=== PATIENT | female | born 1990 ===

== ENCOUNTER 2016-09-23 08:12 | Emergency (ER) | payer MEDICAID ==
[2016-09-23 08:12] VITALS: BMI 35.9
[2016-09-23] MEDS ORDERED: Sodium Chloride 0.9% 1,000 ML IV ONE (08:45)
[2016-09-23] MEDS ORDERED: Sodium Chloride 0.9% 1,000 ML ONE (08:49)
[2016-09-23 08:59] LABS: RBC URINE 3 /hpf (0-3); URINE BILIRUBIN NEGATIVE (NEGATIVE); URINE BLOOD NEGATIVE (NEGATIVE); URINE COLOR Yellow (YELLOW); URINE GLUCOSE (UA) NORMAL (Normal); URINE KETONE TRACE mg/dL (NEGATIVE); URINE LEUKOCYTE ESTERASE 1+ Leu/uL (Negative); URINE PROTEIN NEGATIVE (NEGATIVE); URINE UROBILINOGEN NORMAL mg/dL (0.2-1.0); WBC URINE 5 /hpf (0-5)
[2016-09-23 09:03] LABS: BASO % 0.9 % (0.0-2.0); EOS # 0.1 K/uL (0.0-0.7); EOS % 1.7 % (0.0-4.0); HEMATOCRIT 38.8 % (34.0-47.0); LYMPH % 19.8 % (20.0-40.0); MEAN CORPUSCULAR HEMOGLOBIN 27.7 pg (27.0-31.0); MEAN CORPUSCULAR HGB CONC 32.6 g/dL (33.0-37.0); MEAN PLATELET VOLUME 9.1 fL (7.2-11.7); MONO # 0.8 K/uL (0.0-0.8); MONO % 15.6 % (0.0-10.0); RED CELL DISTRIBUTION WIDTH 13.9 % (11.5-14.5)
[2016-09-23 09:04] VITALS: TEMP 99.3; O2SAT 100
[2016-09-23 09:07] LABS: MEAN CELL VOLUME 85.1 fL (81.0-99.0)
--- NOTE | 2016-09-23 09:14 | C.PDOC ---
History Of Present Illness Patient is a 26 y/o female (6 weeks ), whose PMHx includes gastritis, asthma, diabetes, and HTN, presents to the ED for evaluation of abdominal pain. Patient states she was trying to move her bowels this morning, when she suddenly felt lower abdominal pain. Patient states she had miscarriage 3 years ago and was also 6 weeks at that time. Patient also complains of cough , runny nose, and congestion for the past 2 days. Otherwise, denies any fever, chills, nausea, vomiting, dysuria, hematuria, vaginal bleeding, back pain, shortness of breath, throat pain, or any other associated symptoms at this time. Time Seen by Provider: 09/23/16 08:26 Chief Complaint (Nursing): Abdominal Pain History Per: Patient History/Exam Limitations: no limitations Onset/Duration Of Symptoms: Days (2) Current Symptoms Are (Timing): Still Present Radiation Of Pain To:: None Quality Of Discomfort: "Pain" Associated Symptoms: denies: Fever, Chills, Nausea, Vomiting, Diarrhea, Loss Of Appetite, Back Pain, Chest Pain, Urinary Symptoms Exacerbating Factors: None Alleviating Factors: None Recent travel outside of the [place]: No Additional History Per: Family Abnormal Vaginal Bleeding: No Past Medical History Reviewed: Historical Data, Nursing Documentation, Vital Signs Vital Signs: Last Vital Signs Temp 99.3 F 09/23/16 09:03 Pulse 89 09/23/16 11:33 Resp 18 09/23/16 11:33 BP 129/85 09/23/16 11:33 Pulse Ox 100 09/23/16 11:33 - Medical History PMH: Arthritis, Asthma, Bipolar Disorder, Depression, Diabetes, Gastritis, HTN Denies: Chronic Kidney Disease Surgical History: (x1) - [facility] Procedures INJECT/INFUSE NEC (02/04/15) LOW CERVICAL (01/15/14) Family History: States: CAD (mom) - Social History Hx Tobacco Use: No Hx Alcohol Use: No Hx Substance Use: No - Immunization History Hx Tetanus Toxoid Vaccination: No Hx Influenza Vaccination: No Hx Pneumococcal Vaccination: No Review Of Systems Except As Marked, All Systems Reviewed And Found Negative. Constitutional: Negative for: Fever, Chills ENT: Positive for: Nose Discharge (rhinorrhea), Nose Congestion. Negative for: Throat Pain Respiratory: Positive for: Cough. Negative for: Shortness of Breath, Wheezing Gastrointestinal: Positive for: Abdominal Pain. Negative for: Nausea, Vomiting , Diarrhea Genitourinary: Negative for: Dysuria, Frequency, Hematuria, Vaginal Discharge, Vaginal Bleeding Musculoskeletal: Negative for: Back Pain Physical Exam - Physical Exam Appears: Non-toxic, No Acute Distress, Other (obese) Skin: Normal Color, Warm, Dry Head: Atraumatic, Normacephalic Eye(s): bilateral: Normal Inspection, EOMI Nose: Other (nasal congestion) Neck: Normal ROM, Supple Chest: Symmetrical, No Tenderness Cardiovascular: Rhythm Regular, No Murmur Respiratory: Normal Breath Sounds, No Rales, No Rhonchi, No Wheezing, Other ( coughing) Gastrointestinal/Abdominal: Soft, Tenderness (RLQ), No Guarding, No Rebound Extremity: Normal ROM Neurological/Psych: Oriented x3, Normal Speech, Normal Cognition ED Course And Treatment - Laboratory Results Result Diagrams: 09/23/16 08:58 09/23/16 08:58 O2 Sat by Pulse Oximetry: 100 (on RA) Pulse Ox Interpretation: Normal - CT Scan/US transvaginal ultrasound Other Rad Studies (CT/US): Read By Radiologist, Radiology Report Reviewed CT/US Interpretation: Findings: The uterus measures approximately 8.1 x 5.2 x 6.6 cm. Retroverted. Cervix length measures approximately 3.5 cm. There is a single intrauterine fetus present. 3 mm yolk sac. The gestational sac measures 2.1 cm and is compatible with a gestational age of 6 weeks 4 days. The crown- rump length measures 0.7 cm and is compatible with a gestational age of 6 weeks 4 days. 1.1 x 0.9 cm subchorionic hemorrhage. There is heart motion which measured 119.5 BPM. The right ovary measures 3.8 x 2.8 x 2.8. 1.4 x 1.2 x 1.2 cm probable right corpus luteal cyst. The left ovary measures 2.9 x 1.6 x 2.4. 1.0 x 0.6 x 0.9 cm paraovarian cyst. Blood flow was demonstrated to both ovaries. Impression: Live single intrauterine with estimated gestational age 6 weeks 4 days. heart rate 119.5 bpm. 1.1 x 0.9 cm subchorionic hemorrhage. Advise an anomaly screen at 16-18 weeks gestational age Progress Note: Labs, transvaginal ultrasound ordered and reviewed. Patient was given IV fluids. Disposition Counseled Patient/Family Regarding: Studies Performed, Diagnosis, Need For Followup - Disposition Disposition: HOME/ ROUTINE Disposition Time: 11:00 Condition: IMPROVED Additional Instructions: Follow up with your OBGYN appointment as indicated. Instructions: (ED) - POA Present On Arrival: None - Clinical Impression Clinical Impression: Abdominal pain, - Scribe Statement The provider has reviewed the documentation as recorded by the Pritesh Braun Provider Attestation: All medical record entries made by the Pritesh were at my direction and personally dictated by me. I have reviewed the chart and agree that the record accurately reflects my personal performance of the history, physical exam, medical decision making, and the department course for this patient. I have also personally directed, reviewed, and agree with the discharge instructions and disposition.
[2016-09-23 09:39] LABS: CHLORIDE 101 mmol/L (98-107)
[2016-09-23 09:40] LABS: SODIUM 137 mmol/L (132-148)
[2016-09-23 09:42] LABS: ALB/GLOB RATIO 1.2 (1.0-2.1); ALKALINE PHOSPHATASE 77 U/L (38-126); AST/SGOT 24 U/L (14-36); BILIRUBIN,TOTAL 0.8 mg/dL (0.2-1.3); BLOOD UREA NITROGEN 9 mg/dL (7-17); CARBON DIOXIDE 25 mmol/L (22-30); GFR AFRICAN-AMERICAN > 60; TOTAL PROTEIN 6.9 g/dL (6.3-8.3)
[2016-09-23 09:43] LABS: ALT/SGPT 33 U/L (9-52); CALCIUM 8.7 mg/dl (8.6-10.4); GLUCOSE,RANDOM 87 mg/dL (65-105)
--- NOTE | 2016-09-23 10:37 | US ---
Indication: lower abdominal pain in Comparison: Ob transvaginal ultrasound performed 06/10/13, no recent study available for comparison. Technique: Real-time transabdominal pelvic ultrasound was performed. In addition a transvaginal pelvic ultrasound was necessary to better depict pelvic anatomy Findings: The uterus measures approximately 8.1 x 5.2 x 6.6 cm. Retroverted. Cervix length measures approximately 3.5 cm. There is a single intrauterine fetus present. 3 mm yolk sac. The gestational sac measures 2.1 cm and is compatible with a gestational age of 6 weeks 4 days. The crown-rump length measures 0.7 cm and is compatible with a gestational age of 6 weeks 4 days. 1.1 x 0.9 cm subchorionic hemorrhage. There is heart motion which measured 119.5 BPM. The right ovary measures 3.8 x 2.8 x 2.8. 1.4 x 1.2 x 1.2 cm probable right corpus luteal cyst. The left ovary measures 2.9 x 1.6 x 2.4. 1.0 x 0.6 x 0.9 cm paraovarian cyst. Blood flow was demonstrated to both ovaries. Impression: Live single intrauterine with estimated gestational age 6 weeks 4 days. heart rate 119.5 bpm. 1.1 x 0.9 cm subchorionic hemorrhage. Advise an anomaly screen at 16-18 weeks gestational age
[2016-09-23 11:35] VITALS: BP 129/85; PULSE 89; RESP 18
== END 2016-09-23 11:34 | disposition home or self-care (01) ==
LOC: C.ER 08:12
DX: O26.891 Other specified pregnancy related conditions, first trimester (principal); R10.31 Right lower quadrant pain; Z3A.01 Less than 8 weeks gestation of pregnancy
CPT/HCPCS: 76805; 76817; 80053; 81001; 84702; 84703; 85025; 96360; 99285; J7040

== ENCOUNTER 2018-03-05 22:30 | Emergency (ER) | payer MEDICAID, OTHER ==
[2018-03-05 22:30] VITALS: BMI 36.3
[2018-03-05 22:43] VITALS: PULSE 80
--- NOTE | 2018-03-05 22:54 | C.PDOC ---
History Of Present Illness 28 year old female presents to the ED c/o left anterior chest wall pain for the past 2 hours. Patient states her pain is sharp, worsens with movement and palpation. Patient denies fever chills, nausea, vomit, diarrhea, sweats, lighth eadedness, dizziness, palpitations, injury, fall, trauma. Chief Complaint (Nursing): Chest Pain History Per: Patient History/Exam Limitations: no limitations Onset/Duration Of Symptoms: Hrs (2) Current Symptoms Are (Timing): Still Present Quality: Sharp Exacerbating Factors: Movement Recent travel outside of the [facility]: No Additional History Per: Patient Past Medical History Reviewed: Historical Data, Nursing Documentation, Vital Signs Vital Signs: Last Vital Signs Temp 98.3 F 03/05/18 22:38 Pulse 80 03/05/18 22:38 Resp 14 03/05/18 22:38 BP 111/51 L 03/05/18 22:38 Pulse Ox 98 03/05/18 22:38 - Medical History PMH: Arthritis, Asthma, Bipolar Disorder, Depression, Diabetes, Gastritis, HTN Denies: Chronic Kidney Disease Surgical History: (x 2) - [facility] Procedures INJECT/INFUSE NEC (02/04/15) LOW CERVICAL (01/15/14) Family History: States: CAD (mom) - Social History Hx Tobacco Use: No Hx Alcohol Use: No Hx Substance Use: No - Immunization History Hx Tetanus Toxoid Vaccination: No Hx Influenza Vaccination: No Hx Pneumococcal Vaccination: No Review Of Systems Constitutional: Negative for: Fever, Chills Cardiovascular: Positive for: Chest Pain. Negative for: Palpitations Respiratory: Negative for: Cough, Shortness of Breath Gastrointestinal: Negative for: Nausea, Vomiting Neurological: Negative for: Weakness, Numbness, Headache Physical Exam - Physical Exam Appears: Non-toxic, No Acute Distress Skin: Normal Color, Warm, Dry Head: Atraumatic, Normacephalic Eye(s): bilateral: Normal Inspection Neck: Normal ROM, Supple Chest: Symmetrical, Tenderness (left lateral, parasternal area) Cardiovascular: Rhythm Regular Respiratory: Normal Breath Sounds, No Rales, No Rhonchi, No Wheezing Gastrointestinal/Abdominal: Soft, No Tenderness, No Guarding, No Rebound Extremity: Normal ROM, No Tenderness, No Swelling Neurological/Psych: Oriented x3, Normal Speech, Normal Cognition Gait: Steady ED Course And Treatment - Laboratory Results Result Diagrams: 03/05/18 23:09 03/05/18 23:09 ECG: Interpreted By Me, Viewed By Me ECG Rhythm: Sinus Rhythm ECG Interpretation: Normal, No Acute Changes Interpretation Of ECG: NSR, normal tracings Rate From EC O2 Sat by Pulse Oximetry: 98 (ON RA) Pulse Ox Interpretation: Normal - Radiology CXR: Interpreted by Me, Viewed By Me CXR Interpretation: Yes: No Acute Disease, Other (normal chest film). No: Infiltrates - CT Scan/US CT chest Other Rad Studies (CT/US): Read By Radiologist, Radiology Report Reviewed CT/US Interpretation: CTA OF THE CHEST WITH IV CONTRAST. CLINICAL HISTORY: Chest pain. TECHNIQUE: Axial and reformatted sagittal and coronal images of the chest obtained after bolus IV contrast administration. FINDINGS: Normal enhancement of the enlarged main pulmonary artery and right and left pulmonary arteries. Normal enhancement of the bilateral peripheral pulmonary arteries. There is no demonstrated pulmonary embolism. Normal thoracic aorta and visualized great vessels. There is no demonstrated aortic dissection. Normal heart and pericardium. Normal mediastinum. Normal hilar regions. Normal visualized trachea and bronchi. The lungs are well expanded. Normal pulmonary parenchyma. Normal pleura. Normal chest wall structures. Normal osseous structures. Moderate sliding hiatal hernia. IMPRESSION: No demonstrated pulmonary embolism or arterial dissection. Moderate sliding hiatal hernia. Enlarged main pulmonary artery, probably pulmonary arterial hypertension. . Electronically signed on Mar 06, 2018 3:38:44 AM EDT by: Emily Zavala M.D., Certified by ABR, MSK, Neuroradiology Medical Decision Making Medical Decision Making: Plan: * EKG * Labs * CXR * Toradol 30 mg IVP * UA Disposition Counseled Patient/Family Regarding: Diagnosis - Disposition Referrals: [facility] [Outside] Disposition: HOME/ ROUTINE Disposition Time: 03:40 Condition: STABLE Prescriptions: Naproxen 375 mg PO TIDPC #20 tablet Instructions: Costochondritis Forms: [facility] (Albanian) - POA Present On Arrival: None - Clinical Impression Clinical Impression: Chest wall pain - Scribe Statement The provider has reviewed the documentation as recorded by the Scribe Hank Larson All medical record entries made by the Scribe were at my direction and personally dictated by me. I have reviewed the chart and agree that the record accurately reflects my personal performance of the history, physical exam, medical decision making, and the department course for this patient. I have also personally directed, reviewed, and agree with the discharge instructions and disposition.
[2018-03-05 23:14] LABS: BASO # 0.1 K/uL (0.0-0.2); BASO % 1.5 % (0.0-2.0); EOS # 0.1 K/uL (0.0-0.7); EOS % 1.8 % (0.0-4.0); HEMOGLOBIN 11.6 g/dL (11.0-16.0); LYMPH # 2.2 K/uL (1.0-4.3); LYMPH % 31.2 % (20.0-40.0); MEAN CELL VOLUME 83.6 fL (81.0-99.0); MEAN CORPUSCULAR HEMOGLOBIN 27.7 pg (27.0-31.0); MEAN CORPUSCULAR HGB CONC 33.2 g/dL (33.0-37.0); MONO # 0.6 K/uL (0.0-0.8); MONO % 8.8 % (0.0-10.0); NEUT # 4.1 K/uL (1.8-7.0); NEUT % 56.7 % (50.0-75.0); RBC 4.18 Mil/uL (3.80-5.20); RED CELL DISTRIBUTION WIDTH 14.6 % (11.5-14.5); WHITE BLOOD COUNT 7.2 K/uL (4.8-10.8)
[2018-03-05 23:28] LABS: ALB/GLOB RATIO 1.4 (1.0-2.1); ALBUMIN 3.8 g/dL (3.5-5.0); ALT/SGPT 25 U/L (9-52); AST/SGOT 19 U/L (14-36); BLOOD UREA NITROGEN 16 mg/dL (7-17); CALCIUM 9.1 mg/dl (8.6-10.4); GFR NON-AFRICAN AMERICAN > 60
[2018-03-06] MEDS ORDERED: Iodixanol 320 MG/ML 100 ML BOTTLE IV ONE (02:46)
[2018-03-06 03:23] VITALS: BP 109/71; RESP 16; TEMP 98.4
[2018-03-06 03:40] VITALS: O2SAT 98
--- NOTE | 2018-03-06 09:34 | RAD ---
HISTORY: Chest pain COMPARISON: 01/17/2014 TECHNIQUE: Chest PA and lateral FINDINGS: LINES AND TUBES: None. LUNG AND PLEURA: The lungs are well inflated and clear. No pleural effusion or pneumothorax. HEART AND MEDIASTINUM: The heart is not enlarged. The hilar and mediastinal contours are within normal limits. SKELETAL STRUCTURES: The bony structures are within normal limits for the patient's age. VISUALIZED UPPER ABDOMEN: Normal. OTHER FINDINGS: None. IMPRESSION: No active pulmonary disease.
--- NOTE | 2018-03-06 10:28 | CT ---
Date of service: 03/06/2018 CTA chest PE protocol Indication: chest pain/ elev. D-dimer Technique: Contiguous axial images were obtained through the chest with intravenous contrast enhancement. Sagittal and coronal reconstructions were generated and reviewed. This CT exam was performed using 1 or more of the following dose reduction techniques: Automated exposure control, adjustment of the MAA and/or kV according to patient size, and/or use of iterative reconstruction technique. IV contrast: 100 mL Visipaque 320 Radiation dose (DLP): 569.81 MGy-cm. Comparison: Chest x-ray performed 03/05/18 Findings: Visualized portions of the inferior thyroid gland appear unremarkable. The mediastinal and hilar vascular structures appear within normal limits. The heart appears within normal limits of size. No large central or segmental pulmonary embolus evident. Pulmonary artery trunk measures 3.1 cm in diameter. No focal consolidation. No pleural effusion. No pneumothorax. No suspicious pulmonary nodules measuring greater than 5 mm. Moderate-sized hiatal hernia. Limited visualized portions of the upper abdomen: cholecystectomy clips. Mild degenerative changes of the spine. Impression: No large central or segmental pulmonary embolus evident. Moderate-sized hiatal hernia. Enlarged main pulmonary artery. Correlate clinically for pulmonary arterial hypertension. Preliminary impression was provided by [employer].
--- NOTE | 2018-03-07 14:45 | CARD ---
APPROVED REPORT Date of service: 03/05/2018 EKG Measurement Heart [id number] <Conclusion> Poor data quality, interpretation may be adversely affected Normal sinus rhythm Normal ECG
== END 2018-03-06 03:52 | disposition home or self-care (01) ==
LOC: C.ER 22:30
DX: R07.89 Other chest pain (principal); I10 Essential (primary) hypertension; E11.9 Type 2 diabetes mellitus without complications
CPT/HCPCS: 71046; 71275; 80053; 84484; 84703; 85025; 85378; 93005; 96374; 99284; J1885; Q9967